=== PATIENT | female | born 1990 | race Caucasian/White ===

== ENCOUNTER 2017-06-23 14:03 | Emergency (ER) | payer MEDICAID ==
[~2017-06-23] VITALS: Ht 162.6 cm; Wt 112.5 kg
[2017-06-23 14:38] VITALS: BP 161/99
[2017-06-23] MEDS ORDERED: TraMADol HCL 50 MG TABLET PO ONE (15:00)
[2017-06-23] MEDS ORDERED: KETOROLAC TROMETHAMINE 30 MG/ML VIAL IM ONE (15:00)
== END 2017-06-23 15:19 | disposition home or self-care (01) ==
LOC: EMS 14:06
DX: R51 Headache (principal)
CPT/HCPCS: 96372; 99283; J1885

== ENCOUNTER → 2018-03-30 | Outpatient (CLI) | payer OTHER ==
[2018-04-01 20:06] LABS: RUBEOLA (MEASLES) IGM <0.80 AU (0.00-0.79)
== END | disposition home or self-care (01) ==
LOC: EMPHLTH 15:37
PROVIDERS: ATTEND Internal Medicine
DX: Z02.1 Encounter for pre-employment examination (principal)
CPT/HCPCS: 86706; 86735; 86762; 86765; 86787